=== PATIENT | male | born 1945 | race Caucasian/White ===

== ENCOUNTER → 2017-03-03 | Outpatient (CLI) | payer MEDICARE ==
[2016-03-02 13:43] VITALS: BP 103/66; PULSE 72
[~2017-03-03] MED LIST: ALPR1TAB3 PO; ASPI81TA28 PO; CHOL1000 PO; CLOP1TAB15 PO; CYAN10005 PO; DIPH-437 PO; MAGN400T6 PO; METO25TA3 PO; MISCTAB PO; PRAV20TA PO; PYRI100T4 PO; TAMS0.4C38 PO
[2017-03-03 13:20] VITALS: BP 114/67; PULSE 64; TEMP 37.1; O2SAT 97
--- NOTE | 2017-03-03 16:22 | Radiation Oncology Follow-Up ---
Radiation Oncology Follow-Up Date of Visit Mar 03, 2017. Reason For Visit Annual follow-up Radiation Completion Date 02/03/16 - Prostate Seed Implant Diagnosis (1) Prostate cancer Status: Resolved Onset Date: 03/12/2015 Location: both lobes of prostate Histology Subtype: adenocarcinoma Stage: ll (B) Permanent Comment: Rising PSA clinical stage TIc Status post biopsy 08/18/2010 benign Rising PSA to 11.06 Status post ultrasound-guided biopsies 03/12/2015 revealing Ender 3+3 Biopsy stage T2c Prostate volume 33.6 Prostate density 0.26 Hormone suppression Lupron 30 mg 09/17/2015 Status post completion of prostate seed implant 02/03/2016 as monotherapy, 53 seeds were placed, received 11,500 cGy Last Edited By: Estella Esparza on Mar 03, 2017 16:16 History of Present Illness Mr. Castrejon is a 72 year-old male without a family history of prostate cancer. He is been followed with serial prostate-specific antigens. In 2009 he was found to have a rise in prostate-specific antigen to 4.56. This prompted a discussion of prostate biopsy. Ultimately on 08/18/2010 Dr. John performed ultrasound-guided biopsies. A total of 12 biopsies were taken. All biopsies were benign. The biopsy of the right lateral mid gland however revealed a few atypical glands that were suspicious for prostatic adenocarcinoma. Accession # : [id number]. The prostate volume was 44.1 g. The patient was started on a course of Proscar and had a good response. His prostate-specific antigen did respond as anticipated and in late 2010 his prostate-specific antigen had decreased to 2.88. This is consistent with a 50% reduction of prostate- specific antigen. His finasteride was ultimately stopped. Patient continued to be followed and in 2012 this patient had increased to its prior value and subsequently above 26.6 to. On 08/06/2014 prostate-specific antigen was repeated and showed a further increase to 8.9. He was seen by Dr. Feliz discussed in August 2014 repeat biopsy to rule out an occult primary.. A repeat prostate-specific antigen was performed on 02/03/2015. This showed further increase 10.00. Ultimately the patient was seen by Dr. Wren proceeded with ultrasound-guided prostate needle biopsies on 03/12/2015. His approximate volume was 40 g. 12 core biopsies of the prostate were obtained. Review of the tissue obtained from the left apex revealed benign prostate tissue. Tissue from the left mid gland revealed a tiny focus of adenocarcinoma , [place] grade 3+3 involving less than 1% of the tissue fragments. No evidence of perineural invasion was seen. Biopsy the left base, right mid and right base revealed benign prostatic tissue. Biopsy of the right apex revealed adenocarcinoma Ender grade 3+3 involving 15-20% of the tissue fragments with no evidence of perineural invasion. Accession #: [id number]. The patient return to discuss the biopsy findings with Dr. Wren. His clinical stage was a T1c and his biopsy stage was a T2c prostate volume of 40 g Ender grade 3+3 and presenting prostate-specific antigen of 10. He ordered a staging CT scan of the abdomen and pelvis with and without IV contrast on 2014. The prostate measured 3.7 x 3.8 x 4.6 cm and containing calcifications. There was no evidence of enlarged pelvic or periaortic adenopathy. There was no evidence of bony metastatic disease. Patient also underwent a staging bone scan which showed no obvious findings suggesting osseous metastatic disease. There was increased activity in several joints compatible with degenerative findings. The patient was to be referred to a major cancer center but because of insurance issues could not be seen at [place]. He therefore was sent to [facility] where they were seen by Dr. Price Conrad. He reviewed with the patient his treatment options but suggested consideration of an MRI of the pelvis to better define local extent. He felt this would better clarify the relative benefits of prostate seed implant versus external radiation based on the local extent of the disease. This study was performed on 06/12/2015. The prostate measured 4.6 x 3.6 x 4.9 cm. Areas of high T1 signal were noted likely representing postbiopsy hemorrhage. Based on this study there was no evidence of extracapsular extension. The neurovascular bundles were identified and were symmetric. There was no bowel changes no enlarged lymph nodes and no evidence of destructive bony lesions. The patient was to go to [place] for a second opinion ultimately was referred to urology in [place] with a were seen by Dr. Oliver Carballo 07/30/2015. His digital rectal exam revealed no evidence of induration or nodularity. His estimated prostate volume was 40 g. He discussed treatment options with the patient and recommended consideration of radiation oncology referral for discussion of radiation treatment options. He also ordered a repeat prostate- specific antigen. This was performed on 08/01/2015. Unfortunately this showed further rise in prostate-specific antigen to 11.06. We were ultimately scheduled to see this patient today in referral for discussion of the treatment options The patient was seen by Dr. Carballo. He was given Lupron in September. He tolerated this well. Denies hot flashes. He did have some testicular feeling of tightness. Denied any breast tenderness or swelling. He did not have any increase in leg edema. He completed an AUA score sheet and today his score was 21. He is currently not on any medication to help his urination. He completed expanded prostate cancer index composite for clinical practice and gave a score of 212 and urinary incontinence symptoms. He gave a score of 5 of 12 and urinary irritation symptoms. He gave a score of 0 of 12 in bowel symptoms. A score of 9 of 12 and sexual symptoms. He gave a score of 6 of 12 in hormonal vitality symptoms. His total was 22 of 60. The patient underwent a prostate seed implant as monotherapy 02/03/2016. Interim History He's been doing well over this past year. He does have a high AUA score 21. He is taking Flomax once daily. He stated he is satisfied with his urinary status. He previously had been on Flomax twice daily. He denies any burning on urination. No pelvic pressure or pain. The most recent PSA was 08/10/2016 and this was 1.360. He completed and expanded prostate cancer index composite for clinical practice and gave a score of 2 of 12 and urinary incontinent symptoms. He gave a score of 4 of 12 and urinary irritation symptoms. He gave a score of 212 and bowel symptoms. He gave a score of 4 of 12 and sexual symptoms. He gave score 412 and hormonal vitality symptoms. His total was 16 of 60. Allergies Coded Allergies: No Known Allergies (Unverified , 02/03/16) Home Medications Scheduled Acetaminophen/Diphenhydramine (Tylenol Pm), 1 TAB PO HS Aspirin (Aspirin Ec), 81 MG PO QAM Cholecalciferol (Vitamin D3), 1 TAB PO QAM Clopidogrel (Plavix), 75 MG PO QAM Cyanocobalamin (Vitamin B-12), 1,000 MCG PO QAM Metoprolol Succ (Toprol Xl) (Toprol-Xl), 25 MG PO QAM Pravastatin (Pravachol ), 40 MG PO HS Pyridoxine (Vitamin B6), 100 MG PO QAM Tamsulosin Hcl (Flomax), 0.4 MG PO DAILY Scheduled PRN Alprazolam (Xanax), 25 MG PO HS PRN for Sleep Magnesium Oxide (Mag-Ox), 400 MG PO QAM PRN for PRN Misc Natural Products (Sinus Formula), 1 TAB PO BID PRN for Nasal Congestion Review of Systems Gastrointestinal: Symptoms: WNL GI Comments: nausea for 2 weeks after seed implant ok now Oral: Symptoms: No Problems Respiratory: Symptoms: WNL Respiratory Comments: GELZ Other Respiratory: last 2 months increased shortness of breath Urinary: Symptoms: WNL, Nocturia Comments: Slow Stream & Freqency q2hr & Nocturia x 2, See AUA & EPIC Skin: Symptoms: No Problems Physical Exam Vital Signs Date Time Temp Pulse Resp B/P Pulse Ox O2 Delivery O2 Flow Rate FiO2 03/03/17 13:20 37.1 64 16 114/67 97 General Appearance: no apparent distress Eyes: normal inspection, EOMI ENT: normal ENT inspection, hearing grossly normal Neck: no adenopathy Respiratory/Chest: lungs clear, no respiratory distress, no accessory muscle use Cardiovascular: regular rate, rhythm, no gallop, no murmur Abdomen: non tender, soft, no organomegaly Anal / Rectum: Rectal examination revealed normal sphincter tone. Prostate consistent with a seed implant. No rectal masses no rectal bleeding. Extremities: no pedal edema Neurologic/Psychiatric: no motor/sensory deficits, alert, normal mood/affect Skin: warm/dry Laboratory Studies Test 03/03/17 13:44 Prostate Specific Antigen 0.913 ng/ml (0.000-4.000) Assessment & Plan Plan: PSA was drawn today prior to examination. He'll be notified as to results. We discussed his current urinary status. He is satisfied with his current condition. We did discuss increasing the Flomax to twice a day. He does not wish to increase the medication. He is happy to continue with just one Flomax daily. He'll see Dr. Thurman in August. We asked him to return to our office in one month. He may call if he has any questions or concerns in the interim. Total Time In Follow-Up I spent 20 minutes speaking to the patient and performing examination. I spent 15 minutes reviewing information and completing this note. Copy To Willis Benitez M.D. ([place]); Oliver Carballo MD
== END | disposition home or self-care (01) ==
LOC: C.ONC 13:08
PROVIDERS: ATTEND Physician Assistant Medical
DX: Z08 Encounter for follow-up examination after completed treatment for malignant neoplasm (principal); Z92.3 Personal history of irradiation; Z85.46 Personal history of malignant neoplasm of prostate

== ENCOUNTER → 2017-07-14 | Outpatient (CLI) | payer MEDICARE ==
[2017-07-14 18:00] LABS: BASO % 0.5 %; BASO ABS # 0.03 K/uL (0-0.2); COMPLETE YES; EOS % 1.1 %; HEMATOCRIT 44.2 % (42-52); IG% 0.2 %; LYMPH % 18.5 %; LYMPH ABS # 1.21 K/uL (1.2-3.4); MEAN CELL VOLUME 91.5 fL (80-100); MEAN CORPUSCULAR HGB CONC 32.8 g/dl (32-36); MEAN PLATELET VOLUME 9.2 fL (7.4-10.4); MONO % 8.9 %; NEUT % 70.8 %; PLATELET COUNT 224 K/uL (130-400); RED BLOOD COUNT 4.83 M/uL (4.7-6.1); WHITE BLOOD COUNT 6.55 K/uL (4.8-10.8)
[2017-07-14 18:11] LABS: ALT/SGPT 28 U/L (12-78); BLOOD UREA NITROGEN 13 mg/dl (7-18); BUN/CREATININE RATIO 14.6 (10-20); CALCIUM 8.9 mg/dl (8.5-10.1); CARBON DIOXIDE 29 mmol/L (21-32); CHLORIDE 106 mmol/L (98-107); CHOLESTEROL 125 mg/dl (0-200); GLUCOSE 104 mg/dl (70-99); POTASSIUM 4.2 mmol/L (3.5-5.1); SODIUM 140 mmol/L (136-145); TRIGLYCERIDES 90 mg/dl (0-150); VERY LOW DENSITY LIPOPROT CALC 18 mg/dl
[2017-07-14 18:15] LABS: ALKALINE PHOSPHATASE 68 U/L (45-117); AST/SGOT 21 U/L (15-37); HDL CHOLESTEROL 41 mg/dl; LDL CHOLESTEROL CALCULATED 66 mg/dl; PROSTATE SPECIFIC ANTIGEN 0.868 ng/ml (0.000-4.000)
== END | disposition home or self-care (01) ==
LOC: C.LABSPEC 17:38
PROVIDERS: ATTEND Family Medicine
DX: I25.10 Atherosclerotic heart disease of native coronary artery without angina pectoris (principal); E78.2 Mixed hyperlipidemia; I10 Essential (primary) hypertension; C61 Malignant neoplasm of prostate

== ENCOUNTER → 2018-02-22 | Outpatient (CLI) | payer MEDICARE ==
[2018-02-22 13:56] VITALS: BP 127/77; PULSE 69; TEMP 36.7; O2SAT 97
--- NOTE | 2018-02-22 16:23 | Radiation Oncology Follow-Up ---
Radiation Oncology Follow-Up Date of Visit Feb 22, 2018. Reason For Visit Annual follow-up Radiation Completion Date seed implant on 02-03-2016 Diagnosis (1) Prostate cancer Status: Resolved Onset Date: 03/12/2015 Location: Both lobes of the prostate Histology Subtype: Adenocarcinoma Stage: ll (Biopsy stage) Permanent Comment: Rising PSA clinical stage TIc Status post biopsy 08/18/2010 benign Rising PSA to 11.06 Status post ultrasound-guided biopsies 03/12/2015 revealing Ender 3+3 Biopsy stage T2c Prostate volume 33.6 Prostate density 0.26 Hormone suppression Lupron 30 mg 09/17/2015 Status post completion of prostate seed implant 02/03/2016 as monotherapy, 53 seeds were placed, received 11,500 cGy Last Edited By: Estella Esparza on Mar 03, 2017 16:16 History of Present Illness Mr. Castrejon is without a family history of prostate cancer. He is been followed with serial prostate-specific antigens. In 2009 he was found to have a rise in prostate-specific antigen to 4.56. This prompted a discussion of prostate biopsy. Ultimately on 08/18/2010 Dr. John performed ultrasound-guided biopsies. A total of 12 biopsies were taken. All biopsies were benign. The biopsy of the right lateral mid gland however revealed a few atypical glands that were suspicious for prostatic adenocarcinoma. Accession #: [id number]. The prostate volume was 44.1 g. The patient was started on a course of Proscar and had a good response. His prostate-specific antigen did respond as anticipated and in late 2010 his prostate-specific antigen had decreased to 2.88. This is consistent with a 50% reduction of prostate-specific antigen. His finasteride was ultimately stopped. Patient continued to be followed and in 2012 this patient had increased to its prior value and subsequently above 26.6 to. On 08/06/2014 prostate-specific antigen was repeated and showed a further increase to 8.9. He was seen by Dr. Feliz discussed in August 2014 repeat biopsy to rule out an occult primary.. A repeat prostate-specific antigen was performed on 02/03/2015. This showed further increase 10.00. Ultimately the patient was seen by Dr. Wren proceeded with ultrasound-guided prostate needle biopsies on 03/12/2015. His approximate volume was 40 g. 12 core biopsies of the prostate were obtained. Review of the tissue obtained from the left apex revealed benign prostate tissue. Tissue from the left mid gland revealed a tiny focus of adenocarcinoma , [place] grade 3+3 involving less than 1% of the tissue fragments. No evidence of perineural invasion was seen. Biopsy the left base, right mid and right base revealed benign prostatic tissue. Biopsy of the right apex revealed adenocarcinoma Ender grade 3+3 involving 15-20% of the tissue fragments with no evidence of perineural invasion. Accession #: [id number]. The patient return to discuss the biopsy findings with Dr. Wren. His clinical stage was a T1c and his biopsy stage was a T2c prostate volume of 40 g [place] grade 3+3 and presenting prostate-specific antigen of 10. He ordered a staging CT scan of the abdomen and pelvis with and without IV contrast on 2014. The prostate measured 3.7 x 3.8 x 4.6 cm and containing calcifications. There was no evidence of enlarged pelvic or periaortic adenopathy. There was no evidence of bony metastatic disease. Patient also underwent a staging bone scan which showed no obvious findings suggesting osseous metastatic disease. There was increased activity in several joints compatible with degenerative findings. The patient was to be referred to a major cancer center but because of insurance issues could not be seen at [place]. He therefore was sent to [facility] where they were seen by Dr. Price Conrad. He reviewed with the patient his treatment options but suggested consideration of an MRI of the pelvis to better define local extent. He felt this would better clarify the relative benefits of prostate seed implant versus external radiation based on the local extent of the disease. This study was performed on 06/12/2015. The prostate measured 4.6 x 3.6 x 4.9 cm. Areas of high T1 signal were noted likely representing postbiopsy hemorrhage. Based on this study there was no evidence of extracapsular extension. The neurovascular bundles were identified and were symmetric. There was no bowel changes no enlarged lymph nodes and no evidence of destructive bony lesions. The patient was to go to [place] for a second opinion ultimately was referred to urology in [place] with a were seen by Dr. Oliver Carballo 07/30/2015. His digital rectal exam revealed no evidence of induration or nodularity. His estimated prostate volume was 40 g. He discussed treatment options with the patient and recommended consideration of radiation oncology referral for discussion of radiation treatment options. He also ordered a repeat prostate- specific antigen. This was performed on 08/01/2015. Unfortunately this showed further rise in prostate-specific antigen to 11.06. We were ultimately scheduled to see this patient today in referral for discussion of the treatment options The patient was seen by Dr. Carballo. He was given Lupron in September. He tolerated this well. Denies hot flashes. He did have some testicular feeling of tightness. Denied any breast tenderness or swelling. He did not have any increase in leg edema. He completed an AUA score sheet and today his score was 21. He is currently not on any medication to help his urination. He completed expanded prostate cancer index composite for clinical practice and gave a score of 212 and urinary incontinence symptoms. He gave a score of 5 of 12 and urinary irritation symptoms. He gave a score of 0 of 12 in bowel symptoms. A score of 9 of 12 and sexual symptoms. He gave a score of 6 of 12 in hormonal vitality symptoms. His total was 22 of 60. The patient underwent a prostate seed implant as monotherapy 02/03/2016. Interim History He has been doing well over the past year. He denies any change in urination. His AUA score was 21. Today his AUA score is 21 and he feels that his urination is unchanged from previous and he is mostly satisfied with the status. He completed and expanded prostate cancer index composite for clinical practice and gave a score of 1 of 12 and urinary incontinence symptoms. He gave a score of 5 of 12 and urinary irritation symptoms. He gave a score of 1 of 12 and bowel symptoms. He gave a score of 5 of 12 in sexual symptoms. He gave a score of 6 of 12 in hormonal vitality symptoms. His total was 18 of 60. He continues on Flomax once daily. Allergies Coded Allergies: No Known Allergies (Unverified , 02/03/16) Home Medications Scheduled Acetaminophen/Diphenhydramine (Tylenol Pm), 1 TAB PO HS Aspirin (Aspirin Ec), 81 MG PO QAM Cholecalciferol (Vitamin D3), 1 TAB PO QAM Clopidogrel (Plavix), 75 MG PO QAM Cyanocobalamin (Vitamin B-12), 1,000 MCG PO QAM Metoprolol Succ (Toprol Xl) (Toprol-Xl), 25 MG PO QAM Pravastatin (Pravachol ), 40 MG PO HS Pyridoxine (Vitamin B6), 100 MG PO QAM Tamsulosin Hcl (Flomax), 0.4 MG PO DAILY Scheduled PRN Alprazolam (Xanax), 25 MG PO HS PRN for Sleep Magnesium Oxide (Mag-Ox), 400 MG PO QAM PRN for PRN Misc Natural Products (Sinus Formula), 1 TAB PO BID PRN for Nasal Congestion Review of Systems Gastrointestinal: GI Comments: " I have felt bad over the past few days a little nausea " Oral: Symptoms: No Problems Respiratory: Symptoms: SOB With Exertion Other Respiratory: " I have increased SOB since the stroke " Urinary: Symptoms: Nocturia, Frequency Comments: nocturia times 1 , denies pain or burning Skin: Symptoms: No Problems Physical Exam Vital Signs Date Time Temp Pulse Resp B/P (MAP) Pulse Ox O2 Delivery O2 Flow Rate FiO2 02/22/18 13:56 36.7 69 20 127/77 97 Fatigue: None General Appearance: no apparent distress Eyes: normal inspection, EOMI ENT: normal ENT inspection, hearing grossly normal Respiratory/Chest: lungs clear, no respiratory distress, no accessory muscle use Cardiovascular: regular rate, rhythm, no gallop, no murmur Abdomen: non tender, soft Anal / Rectum: Rectal examination reveals normal sphincter tone. Prostate is consistent with a seed implant. No rectal masses and no rectal bleeding. Neurologic/Psychiatric: no motor/sensory deficits, alert, normal mood/affect Skin: warm/dry Pain Management Patient Reports Pain: No Side: Bilateral Patient Preferred Pain Scale: 0 - 10 Initial Pain Intensity: 0.0 Pain Management Plan He denies pain therefore requires no pain management. Laboratory Laboratory Results: were reviewed, and pertinent findings noted below Laboratory Comments: Test 02/22/18 14:16 Prostate Specific Antigen 0.395 ng/ml (0.000-4.000) Pathology Pathology Results: were reviewed, and pertinent findings noted in HPI Imaging Imaging Studies: not applicable Assessment & Plan Plan: PSA was drawn today prior to examination. He will be notified as to the results. Continue regular follow-up with his primary care provider and Dr. Carballo. He will be seeing Dr. Carballo in 6 months and having a recheck PSA. We asked him to return to our office in 1 year. He may call if he has any questions or concerns in the interim. Total Time In Follow-Up I spent 20 minutes speaking to the patient and performing examination. I spent 15 minutes reviewing information and completing this note. [place] Copy To Rick Benitez M.D. (MEDICAL); Oliver Carballo MD
== END | disposition home or self-care (01) ==
LOC: C.ONC 13:41
PROVIDERS: ATTEND Physician Assistant Medical
DX: Z08 Encounter for follow-up examination after completed treatment for malignant neoplasm (principal); Z92.3 Personal history of irradiation; Z85.46 Personal history of malignant neoplasm of prostate